=== PATIENT | female | born 1940 | race Asian ===

== ENCOUNTER 2019-10-30 21:55 | Inpatient (IN) | payer MEDICAID ==
[~2019-10-30] VITALS: Ht 149.9 cm; Wt 49.9 kg
[2019-10-30 22:38] VITALS: BP_SYST 196
--- NOTE | 2019-10-31 00:15 | NUR ---
Patient to ER bed hallway 1 to gown for evaluation. Side rails up. Report given to MADELINE.
--- NOTE | 2019-10-31 00:26 | NUR ---
PT MOVED TO BED 8. RN AWARE.
--- NOTE | 2019-10-31 00:31 | NUR ---
Pt awake and alert. able to communicate needs. No distress noted. In [facility]
[2019-10-31 02:27] LABS: BASOPHILS # (AUTO) 0.1 K/uL (0.0-0.2); BASOPHILS % (AUTO) 1.3 % (0.0-2.0); EOSINOPHILS % (AUTO) 0.8 % (0.0-4.0); HEMATOCRIT 32.2 % (36-48); HEMOGLOBIN 10.6 g/dL (12.0-16.0); LYMPHOCYTES # (AUTO) 1.4 K/uL (1.0-5.5); LYMPHOCYTES % (AUTO) 24.8 % (20.5-51.5); MEAN CORPUSCULAR HEMOGLOBIN 30 pg (27-31); MEAN CORPUSCULAR HGB CONC 33 % (32-36); MEAN CORPUSCULAR VOLUME 90 fL (79.0-98.0); MONOCYTES # (AUTO) 0.4 K/uL (0.0-1.0); MONOCYTES % (AUTO) 6.6 % (1.7-9.3); NEUTROPHILS # (AUTO) 3.8 K/uL (1.8-7.7); NEUTROPHILS % (AUTO) 66.5 % (40.0-70.0); PLATELET COUNT (AUTO) 309 K/uL (130-430); RED BLOOD CELL COUNT(AUTO) 3.59 MIL/uL (4.2-6.2); RED CELL DISTRIBUTION WIDTH 13.5 % (9.0-15.0); WHITE BLOOD COUNT (AUTO) 5.7 K/uL (4.8-10.8)
[2019-10-31 02:28] LABS: BILIRUBIN,URINE NEGATIVE (NEGATIVE); BLOOD, URINE NEGATIVE (NEGATIVE); CLARITY/URINE CLEAR (CLEAR); COLOR,URINE YELLOW (YELLOW); GLUCOSE,URINE NEGATIVE (NEGATIVE); KETONES,URINE NEGATIVE (NEGATIVE); LEUKOCYTE ESTERASE ,URINE 3+ (NEGATIVE); NITRITE, URINE NEGATIVE (NEGATIVE); PROTEIN URINE NEGATIVE (NEGATIVE); UROBILINOGEN,URINE 0.2 (0.2-1.0)
[2019-10-31 02:35] LABS: BACTERIA,URINE FEW /HPF (None Seen); RBC,URINE 0-3 /HPF (0-3); WBC,URINE 20-50 /HPF (0-3)
--- NOTE | 2019-10-31 02:35 | NUR ---
pt awake alert and able to make needs known. No distress noted.
[2019-10-31 03:13] LABS: ANION GAP 10 (5-15); CALCIUM 9.3 mg/dL (8.4-11.0); CHLORIDE 103 mmol/L (98-107); CREATININE 1.44 mg/dL (0.55-1.30); GLUCOSE 105 mg/dL (70-99); POTASSIUM 4.2 mmol/L (3.5-5.1); SODIUM SERUM 140 mmol/L (136-145); UREA NITROGEN, BLOOD 25 mg/dL (8-21)
[2019-10-31] MEDS ORDERED: NACL 0.9% 1,000 ML IV ONE (03:15)
[2019-10-31] MEDS ORDERED: PIPERACILLIN/TAZO 3.375 GM in NS 50 ML IV ONE (03:15)
[2019-10-31 03:21] LABS: ALANINE AMINOTRANSFERASE 45 U/L (12-78); ALBUMIN 3.5 g/dL (3.4-4.8); ASPARTATE AMINOTRANSFERASE 24 U/L (10-37); TOTAL BILIRUBIN 0.4 mg/dL (0.0-1.0)
--- NOTE | 2019-10-31 03:47 | NUR ---
# 24 gauge angiocath placed to Left AC. Use of asceptic technique. Opsite placed over site. Blood return noted. Blood for lab drawn from site. Flushed with 10 cc of normal saline. No evidence of infiltration noted. Patient tolerated well.
[2019-10-31] MEDS ORDERED: PIPERACILLIN/TAZOBACTAM 3.375 GM/VIAL (ZOSYN) IV ONE (03:48)
[2019-10-31] MEDS ORDERED: SIMV10TA2 PO (04:09)
[2019-10-31] MEDS ORDERED: FAMO20TA8 PO (04:09)
[2019-10-31] MEDS ORDERED: LOSA50TA3 PO (04:09)
[2019-10-31] MEDS ORDERED: AMLO2.5T2 PO (04:09)
--- NOTE | 2019-10-31 04:33 | NUR ---
pt asleep in room on gurney with side rails up. IVF continued. No C/O pain.
--- NOTE | 2019-10-31 06:17 | NUR ---
pt awake and alert, denies any pain at this time. VSS.
--- NOTE | 2019-10-31 07:08 | NUR ---
report given to RN
--- NOTE | 2019-10-31 07:10 | NUR ---
Medication reconciliation completed with information provided by pt daughter. Any prior medication reconciliation on file was reviewed and corrected.
--- NOTE | 2019-10-31 07:19 | NUR ---
report received from Paul LEE. Pt will be admitted under the care of Dr. Devries
--- NOTE | 2019-10-31 07:23 | NUR ---
Patient will be admitted to care of Dr. Devries. Admitted to telemetry unit. Waiting for room assignment at this time. Belongings list completed. Complete and up to date summary report printed. SBAR report to be given at bedside with opportunity for questions.
--- NOTE | 2019-10-31 07:39 | NUR ---
EKG done. MRSA swab collected
--- NOTE | 2019-10-31 07:40 | NUR ---
called for a tele bed, second call. Unable to speak w/ the CN bed assignment.
--- NOTE | 2019-10-31 08:29 | NUR ---
Patient will be admitted to care of Dr. Devries. Admitted to tele unit. Will go to room 130-b. Belongings list completed. Complete and up to date summary report printed. SBAR report to be given at bedside with opportunity for questions. Bedside report to be given. IV is on the LAC 24g, patent and infusing well.
[2019-10-31 09:00] VITALS: BP_SYST 169
--- NOTE | 2019-10-31 09:00 | NUR ---
ADMISSION: RECEIVED PT FROM ER VIA [facility], IN STABLE CONDITION, DX: PAIN, R/T ACUTE CHOLECYSTITIS, A/A/OX4, VS WNL, DENIES HAVING PAIN OR DISCOMFORT AT THIS TIME, IV SITE INTACT, PATENT, NO REDNESS OR SWELLING, ORIENTED TO UNIT, CALL LIGHT PLACED WITHIN REACH, WILL CONT' TO MONITOR AND ASSESS.
--- NOTE | 2019-10-31 09:02 | NUR ---
Surgical consult called: for Dr. Whitaker, regarding cholecystectomy, ordered by Dr. Devries, spoke with Annamaria.
[2019-10-31 09:30] VITALS: BP_SYST 169
--- NOTE | 2019-10-31 12:00 | NUR ---
NURSES NOTES: SPOKE WITH , STATES "I'M OUT OF TOWN RIGHT NOW AND WILL NOT BE ABLE TO SEE THE PT TODAY", WILL NOTIFY , WILL CONT' WITH POC.
[2019-10-31] MEDS: POTASSIUM CHLORIDE 10 MEQ in D5/0.45 NS 1,000 ML IV SCH ×2 (12:53→21:14)
[2019-10-31] MEDS ORDERED: ACETAMINOPHEN 650 MG SUPP.RECT RC PRN (13:45)
[2019-10-31] MEDS ORDERED: MORPHINE 2 MG/ML INJ. SYRINGE IVP PRN (13:45)
[2019-10-31] MEDS ORDERED: ONDANSETRON HCL 4 MG/2 ML VIAL IVP PRN (13:45)
[2019-10-31 13:46] VITALS: BP_SYST 145
[2019-10-31] MEDS: LEVOFLOXACIN 250 MG/D5W 50 ML IV SCH (14:45)
[2019-10-31] MEDS: metroNIDAZOLE 500 mg/NS 100 ML IV SCH ×2 (14:46→21:14)
[2019-10-31] MEDS: FAMOTIDINE PF 20 MG/2 ML VIAL IVP SCH (14:54)
--- NOTE | 2019-10-31 15:00 | NUR ---
NURSES NOTES: SPOKE WITH DR. PALOMINO'S EXCHANGE, STATES IS IN [place], WILL SEE PT WHEN DONE WITH PROCEDURES.
[2019-10-31 17:09] VITALS: BP_SYST 166
--- NOTE | 2019-10-31 17:39 | NUR ---
GI consult called: for Ba Ordaz regarding right quadrant pain, ordered by Dr. Devries, spoke with Radha.
--- NOTE | 2019-10-31 19:00 | NUR ---
VISIT: AT BEDSIDE FOR ASSESSMENT OF PT, DISCUSSED POC, PT VERBALIZES UNDERSTANDING, NEW ORDERS GIVEN, WILL CONT' TO MONITOR AND ASSESS.
--- NOTE | 2019-10-31 19:27 | NUR ---
MD ROUNDS/ CANCELL COVID TEST : DR PALOMINO MAKING ROUNDS , AT FIRST MD ORDERED COVID-19 TEST , AFTER HE TALKED WITH THE PT , PT REFUSED SURGERY AT THIS TIME , SO MD ORDERED TO CANCELL COVID -19 .
--- NOTE | 2019-10-31 19:35 | NUR ---
ROUNDS PATIENT RESTING COMFORTABLY IN BED, NOT IN DISTRESS, VITALS STABLE. DENIES ANY PAIN AND DISCOMFORT AT THIS TIME. ASSESSMENT DONE AND DOCUMENTED. SEE FLOWSHEET. NEEDS ATTENDED TO. SAFETY MEASURES IN PLACED. BED IN LOW AND LOCKED POSITION. CALL LIGHT PLACED WITHIN REACH.
[2019-10-31 20:00] VITALS: BP_SYST 134
--- NOTE | 2019-10-31 21:14 | NUR ---
MEDICATION DUE MEDICATIONS GIVEN SCHEDULED, TOLERATED WELL. WILL CONTINUE TO MONITOR.
--- NOTE | 2019-11-01 00:12 | NUR ---
PATIENT RESTING: Patient resting quietly. No acute distress noted. Vital signs within normal range.
[2019-11-01 02:07] VITALS: BP_SYST 111
--- NOTE | 2019-11-01 02:10 | NUR ---
ROUNDS PATIENT ASLEEP, RESPIRATIONS EVEN AND UNLABORED, NO SOB NOTED. WILL CONTINUE TO MONITOR.
--- NOTE | 2019-11-01 04:16 | NUR ---
ROUNDS PATIENT ASLEEP, RESPIRATIONS EVEN AND UNLABORED, NO SOB NOTED. WILL CONTINUE TO MONITOR.
[2019-11-01] MEDS: metroNIDAZOLE 500 mg/NS 100 ML IV SCH ×2 (05:12→14:00)
--- NOTE | 2019-11-01 06:12 | NUR ---
CLOSING NOTES PATIENT AWAKE, VITALS STABLE, NO COMPLAINTS AT THIS TIME. ALL NEEDS ATTENDED TO. SAFETY AND FALL MEASURES MAINTAINED. BED IN LOW AND LOCKED POSITION. CALL LIGHT PLACED WITHIN REACH.
[2019-11-01 06:43] LABS: BASOPHILS # (AUTO) 0.1 K/uL (0.0-0.2); BASOPHILS % (AUTO) 1.8 % (0.0-2.0); EOSINOPHILS # (AUTO) 0.1 K/uL (0.0-0.4); EOSINOPHILS % (AUTO) 2.4 % (0.0-4.0); HEMATOCRIT 31.2 % (36-48); HEMOGLOBIN 10.4 g/dL (12.0-16.0); LYMPHOCYTES % (AUTO) 25.7 % (20.5-51.5); MEAN CORPUSCULAR HEMOGLOBIN 30 pg (27-31); MEAN CORPUSCULAR HGB CONC 33 % (32-36); MEAN CORPUSCULAR VOLUME 89 fL (79.0-98.0); MONOCYTES # (AUTO) 0.3 K/uL (0.0-1.0); MONOCYTES % (AUTO) 8.9 % (1.7-9.3); NEUTROPHILS # (AUTO) 2.3 K/uL (1.8-7.7); NEUTROPHILS % (AUTO) 61.2 % (40.0-70.0); PLATELET COUNT (AUTO) 294 K/uL (130-430); RED CELL DISTRIBUTION WIDTH 13.6 % (9.0-15.0); WHITE BLOOD COUNT (AUTO) 3.8 K/uL (4.8-10.8)
[2019-11-01 06:54] LABS: INR 1.1 (0.8-1.2)
[2019-11-01 07:19] LABS: ALANINE AMINOTRANSFERASE 34 U/L (12-78); ALBUMIN 3.3 g/dL (3.4-4.8); AMYLASE 159 U/L (0-100); ANION GAP 5 (5-15); ASPARTATE AMINOTRANSFERASE 18 U/L (10-37); BILIRUBIN,DIRECT 0.1 mg/dL (0.0-0.3); CALCIUM 8.4 mg/dL (8.4-11.0); CHLORIDE 103 mmol/L (98-107); CREATININE 1.33 mg/dL (0.55-1.30); GLUCOSE 115 mg/dL (70-99); LIPASE 159 U/L (73-393); POTASSIUM 4.1 mmol/L (3.5-5.1); SODIUM SERUM 135 mmol/L (136-145); THYROID STIMULATING HORMONE 3.69 uIu/mL (0.34-4.82); TOTAL BILIRUBIN 0.6 mg/dL (0.0-1.0); UREA NITROGEN, BLOOD 18 mg/dL (8-21)
--- NOTE | 2019-11-01 08:00 | NUR ---
initial notes rec patient awake alert with hob elevated. ivf infusing well on the r upper arm. no infiltration noted. resp easy and unlabored. no sob noted. bed to the lowest position and side rails up and locked. call light within reached and knows when to call for assistance.
[2019-11-01 08:55] VITALS: BP_SYST 159
[2019-11-01] MEDS: POTASSIUM CHLORIDE 10 MEQ in D5/0.45 NS 1,000 ML IV SCH (10:13)
--- NOTE | 2019-11-01 10:50 | NUR ---
rounds seen by dr johnson. ambulates to the br and emanuel well. denies pain. no sob noted.
[2019-11-01 12:27] VITALS: BP_SYST 155
--- NOTE | 2019-11-01 13:30 | NUR ---
rounds seen by dr keen and will d/c patient.
[2019-11-01] MEDS: FAMOTIDINE PF 20 MG/2 ML VIAL IVP SCH (13:57)
[2019-11-01] MEDS: LEVOFLOXACIN 250 MG/D5W 50 ML IV SCH (14:03)
[2019-11-01 14:49] VITALS: BP_SYST 155
--- NOTE | 2019-11-01 15:50 | NUR ---
closing notes pt was discharged via wheelchair.stable needs attended. instructed re appt to see dr johnson next week. instructed also re med reconciliation. ivl and id band was removed.
== END 2019-11-01 15:45 | disposition home or self-care (01) ==
LOC: SED 21:55 → STU 10-31 07:19
PROVIDERS: ADMIT Internal Medicine; ATTEND Internal Medicine
DX: K80.00 Calculus of gallbladder with acute cholecystitis without obstruction (principal); N17.0 Acute kidney failure with tubular necrosis; N39.0 Urinary tract infection, site not specified; K86.1 Other chronic pancreatitis; I12.9 Hypertensive chronic kidney disease with stage 1 through stage 4 chronic kidney disease, or unspecified chronic kidney disease; N18.9 Chronic kidney disease, unspecified; D64.9 Anemia, unspecified; E78.5 Hyperlipidemia, unspecified; Z90.49 Acquired absence of other specified parts of digestive tract; Z90.710 Acquired absence of both cervix and uterus
CPT/HCPCS: 36415; 71045; 76700-TC; 80053; 81000-TC; 82150-TC; 82248-TC; 83690-TC; 83735-TC; 84443-TC; 84484; 85025; 85610-TC; 85730-TC; 87040-TC; 87081; 87086; 93005; 99285; G0378; J1956; J2543; J3480; J3490